=== PATIENT | male | born 1995 | race Two or more races ===

== ENCOUNTER 2019-07-21 23:26 | Emergency (ER) | payer OTHER ==
[2019-07-22 02:07] LABS: ABS Basophils 0.1 10^3/ul (0-0.2); ABS Eosinophils 0.4 10^3/ul (0-0.6); ABS Lymphocytes 3.3 10^3/ul (1.0-4.8); ABS Neutrophils 8.7 10^3/ul (1.5-7.7); Eosinophil % 3.2 %; Hematocrit 49 % (42-52); Hemoglobin 16.9 g/dL (14.0-18.0); Lymphocyte % 24.7 %; Mean Corpuscular HGB Conc 35 g/dL (31-36); Mean Corpuscular Hemoglobin 29 pg (27-31); Mean Corpuscular Volume 84 fL (80-94); Mean Platelet Volume 8.4 fL (7.4-10.4); Nucleated Red Blood Cells % 0.1; Platelet Count 237 10^3/uL (150-450); Red Blood Count 5.76 10^6 /uL (4.18-5.48); Red Cell Distribution Width 14 % (10-15); White Blood Count 13.6 10^3/uL (3.5-10.8)
[2019-07-22 02:35] LABS: Alcohol < 10 mg/dL (<10)
[2019-07-22 02:36] LABS: ALT 38 U/L (7-52); Albumin 4.7 g/dL (3.2-5.2); Albumin/Globulin Ratio 1.5 (1-3); Alkaline Phosphatase 59 U/L (34-104); Blood Urea Nitrogen 12 mg/dL (6-24); CO2 Carbon Dioxide 25 mmol/L (22-32); Calcium 9.7 mg/dL (8.6-10.3); Chloride 104 mmol/L (101-111); EGFR African American 99.7 (>60); EGFR Non-African American 82.4 (>60); Globulin 3.1 g/dL (2-4); Glucose 103 mg/dL (70-100); Sodium 136 mmol/L (135-145); Total Protein 7.8 g/dL (6.4-8.9)
[2019-07-22 02:42] LABS: Anion Gap 7 mmol/L (2-11)
--- NOTE | 2019-07-22 02:51 | ED ---
Syncope/Near Syncope - HPI Summary HPI Summary: This pt is a 24 Y/O M presenting to [facility] with a CC of a syncopal episode that included a possibility of hitting his head on work-out equipment after standing up from using a hot tub. He states that the hot tub is in a garage and was steamy. He states that he was standing out of the hot tub in order to turn on a fan. He states that he became lightheaded and leaned against the work out equipment before he passed out. The episode was witnessed by his girlfriend who states that he was still unconscious after the fall for about 15-30 seconds. He states that he was confused when he woke up and his girlfriend states that his speech was ok and he had no other deficits. He states that after the episode his head was tight and he became SOB. He states that he has no known aggravating or alleviating factors. He has a FHx of HTN. - History Of Current Complaint Chief Complaint: EDSyncope Time Seen by Provider: 07/22/19 02:38 Hx Obtained From: Patient Onset/Duration: Sudden Onset, Resolved Timing: Seconds - 15-30 Context: Witnessed, Loss Of Consciousness Activity At Onset: Other - walking Associated Head Trauma: No Aggravating Factor(s): Nothing Alleviating Factor(s): Spontaneous Resolution Associated Signs And Symptoms: Head Trauma (Recent) - unknown, Lightheadedness, Shortness Of Breath - Allergies/Home Medications Allergies/Adverse Reactions: Allergies Allergy/AdvReac Type Severity Reaction Status Date / Time No Known Allergies Allergy Verified 07/21/19 23:40 PMH/Surg Hx/FS Hx/Imm Hx Previously Healthy: Yes Endocrine/Hematology History: Denies: Hx Diabetes Cardiovascular History: Denies: Hx Hypertension Sensory History: Denies: Hx Contacts or Glasses Opthamlomology History: Denies: Hx Contacts or Glasses - Surgical History Surgical History: Yes Surgery Procedure, Year, and Place: appendectomy in 2005 - Immunization History Immunizations Up to Date: Yes Infectious Disease History: No Infectious Disease History: Denies: Traveled Outside the [place] in Last 30 Days - Family History Known Family History: Positive: Hypertension - Social History Occupation: Employed Full-time Lives: Alone Alcohol Use: Weekly Hx Substance Use: No Substance Use Type: Reports: None Hx Tobacco Use: No Smoking Status (MU): Never Smoked Tobacco Review of Systems Positive: Shortness Of Breath Positive: Headache, Syncope All Other Systems Reviewed And Are Negative: Yes Physical Exam - Summary Physical Exam Summary: Appearance: Well-appearing, Well-nourished, lying in bed comfortably Skin: Warm, dry, no obvious rash Eyes: sclera anicteric, no conjunctival pallor ENT: mucous membranes moist, pharynx appears normal Neck: Supple, nontender Respiratory: Clear to auscultation, no signs of respiratory distress Cardiovascular: Normal S1, S2. No murmurs. Normal distal pulses in tibial and radial bilaterally. Abdomen: Soft, nontender, normal active bowel sounds present Musculoskeletal: Normal, Strength/ROM Intact Neurological: A&Ox3, awake and alert, mentation is normal, speech is fluent and appropriate Psychiatric: affect is normal, does not appear anxious or depressed Triage Information Reviewed: Yes Vital Signs On Initial Exam: Initial Vitals Temp Pulse Resp BP Pulse Ox 97.1 F 81 18 150/85 97 07/21/19 23:41 07/21/19 23:41 07/21/19 23:41 07/21/19 23:41 07/21/19 23:41 Vital Signs Reviewed: Yes Procedures - Sedation Patient Received Moderate/Deep Sedation with Procedure: No Diagnostics - Vital Signs Vital Signs Temp Pulse Resp BP Pulse Ox 07/22/19 02:18 18 07/22/19 01:46 98.0 F 78 18 151/97 98 07/21/19 23:41 97.1 F 81 18 150/85 97 - Laboratory Lab Results: Lab Results 07/22/19 07/22/19 Range/Units 02:00 02:00 WBC 13.6 H (3.5-10.8) 10^3/uL RBC 5.76 H (4.18-5.48) 10^6 /uL Hgb 16.9 (14.0-18.0) g/dL Hct 49 (42-52) % MCV 84 (80-94) fL MCH 29 (27-31) pg MCHC 35 (31-36) g/dL RDW 14 (10-15) % Plt Count 237 (150-450) 10^3/uL MPV 8.4 (7.4-10.4) fL Neut % (Auto) 64.4 % Lymph % (Auto) 24.7 % [place] % (Auto) 7.1 % Eos % (Auto) 3.2 % Baso % (Auto) 0.6 % Absolute Neuts (auto) 8.7 H (1.5-7.7) 10^3/ul Absolute Lymphs (auto) 3.3 (1.0-4.8) 10^3/ul Absolute Monos (auto) 1.0 H (0-0.8) 10^3/ul Absolute Eos (auto) 0.4 (0-0.6) 10^3/ul Absolute Basos (auto) 0.1 (0-0.2) 10^3/ul Absolute Nucleated RBC 0.0 10^3/ul Nucleated RBC % 0.1 Sodium 136 (135-145) mmol/L Potassium TNP Chloride 104 (101-111) mmol/L Carbon Dioxide 25 (22-32) mmol/L Anion Gap 7 (2-11) mmol/L BUN 12 (6-24) mg/dL Creatinine 1.09 (0.67-1.17) mg/dL Est GFR ( Amer) 99.7 (>60) Est GFR (Non-Af Amer) 82.4 (>60) BUN/Creatinine Ratio 11.0 (8-20) Glucose 103 H (70-100) mg/dL Calcium 9.7 (8.6-10.3) mg/dL Total Bilirubin 0.40 (0.2-1.0) mg/dL AST TNP ALT 38 (7-52) U/L Alkaline Phosphatase 59 (34-104) U/L Total Protein 7.8 (6.4-8.9) g/dL Albumin 4.7 (3.2-5.2) g/dL Globulin 3.1 (2-4) g/dL Albumin/Globulin Ratio 1.5 (1-3) Serum Alcohol < 10 (<10) mg/dL Result Diagrams: 07/22/19 02:00 07/22/19 02:00 Lab Statement: Any lab studies that have been ordered have been reviewed, and results considered in the medical decision making process. - EKG 0154 Cardiac Rate: NL - 73 BPM EKG Rhythm: Sinus Rhythm ST Segment: Normal Ectopy: None Summary of EKG Findings: NSR at 73 BPM, P waves, QRS complex, and T waves are within normal limits, T waves and intervals are normal, no ischemic changes. This is a normal EKG. Interpreted by Dr. Lino at 0155 07/22/19. Course/Dx Course Of Treatment: This pt is a 24 Y/O M presenting to [facility] with a CC of a syncopal episode that included a possibility of hitting his head on work-out equipment after standing up from using a hot tub. He states that the hot tub is in a garage and was steamy. He states that he was standing out of the hot tub in order to turn on a fan. He states that he became lightheaded and leaned against the work out equipment before he passed out. The episode was witnessed by his girlfriend who states that he was still unconscious after the fall for about 15-30 seconds. His PE has no abnormal findings. His EKG taken at 0154 shows a NSR at 73 BPM, P waves, QRS complex, and T waves are within normal limits, T waves and intervals are normal, no ischemic changes. This is a normal EKG. He will be discharged home with a Dx of a vasovagal syncope. - Diagnoses Provider Diagnoses: Vasovagal syncope Discharge ED - Sign-Out/Discharge Documenting (check all that apply): Patient Departure - discharge - Discharge Plan Condition: Good Disposition: HOME Patient Education Materials: Syncope (ED) Referrals: Zuleika Justin DC [Primary Care Provider] - If Needed - Billing Disposition and Condition Condition: GOOD Disposition: Home - Attestation Statements Document Initiated by Natalie: Yes Documenting Scribe: Brian Waller Provider For Whom Natalie is Documenting (Include Credential): Moe Lino MD Scribe Attestation: Brian Wahl, scribed for Moe Lino MD on 07/22/19 at 1944. Scribe Documentation Reviewed: Yes Provider Attestation: The documentation as recorded by the Brian mejias accurately reflects the service I personally performed and the decisions made by me, Moe Lino MD Status of Scribe Document: Viewed
[2019-07-22 03:39] VITALS: BP 137/81
[2019-07-22 03:39] LABS: Urine Benzodiazepine Screen None Detected (None Detect); Urine Opiates Screen None Detected (None Detect)
== END 2019-07-22 03:25 | disposition home or self-care (01) ==
LOC: ED 23:26
DX: R55 Syncope and collapse (principal); R06.02 Shortness of breath
CPT/HCPCS: 36415; 80053; 80307; 80320; 85025; 93005; 99282; G0480